=== PATIENT | female | born 1955 | race African-American/Black ===

== ENCOUNTER 2017-11-06 19:03 | Emergency (ER) | payer OTHER ==
[2017-11-06 19:27] VITALS: BMI 29.0
--- NOTE | 2017-11-06 19:27 | PDOC ---
Rapid Medical Evaluation Medical Evaluation: 11/06/17 19:21 I have performed a brief in-person evaluation of this patient. The patient presents with a chief complaint of: Abd pain w/ vag bleed x 2 weeks. Seen in [facility] last week for same w/ neg labs. 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 States bleeding continues, now w/ weakness. H/o uterine polyps s/p surgery in 2017 at [facility]. H/o HTN, non-compliant w/ meds Pertinent physical exam findings:BP 171/108, HR 111 I have ordered the following:labs The patient will proceed to the ED for further evaluation. 11/06/17 19:27 Discharge Disposition - Diagnosis Vaginal bleeding - Referrals - Patient Instructions - Post Discharge Activity
[2017-11-06 19:54] LABS: BASO % 1.2 % (0-2.0); EOS % 3.4 % (0-4.5); HEMATOCRIT 39.1 % (32.4-45.2); HEMOGLOBIN 12.9 GM/dL (10.7-15.3); LYMPH % 31.5 % (8-40); MCH 29.1 pg (25.7-33.7); MEAN CELL VOLUME 88.2 fl (80-96); MEAN PLT VOLUME 8.5 fl (7.5-11.1); MONO % 9.7 % (3.8-10.2); NEUT % 54.2 % (42.8-82.8); PLATELET COUNT 232 K/MM3 (134-434); RBC 4.44 M/mm3 (3.60-5.2); RDW 13.6 % (11.6-15.6); WHITE BLOOD COUNT 4.5 K/mm3 (4.0-10.0)
[2017-11-06 20:11] LABS: INR 1.12 (0.83-1.09); PROTHROMBIN TIME (PATIENT) 12.7 SEC (9.7-13.0)
[2017-11-06 20:18] LABS: ALBUMIN 3.6 g/dl (3.4-5.0); ALK PHOS 80 U/L (45-117); ANION GAP 11 MMOL/L (8-16); BILIRUBIN,TOTAL 0.5 mg/dL (0.2-1.0); BLOOD UREA NITROGEN 13 mg/dL (7-18); CALCIUM 8.6 mg/dL (8.5-10.1); CHLORIDE 109 mmol/L (98-107); CO2 24 mmol/L (21-32); CREATININE 0.9 mg/dL (0.55-1.3); GLUCOSE,RANDOM 105 mg/dL (74-106); POTASSIUM 3.7 mmol/L (3.5-5.1); SGOT/AST 14 U/L (15-37); SGPT/ALT 14 U/L (13-61); SODIUM 144 mmol/L (136-145); TOT PROT 6.9 g/dl (6.4-8.2)
[2017-11-06 20:24] LABS: URINE APPEARANCE SLCLOUDY; URINE BILIRUBIN NEGATIVE (<2.0 mg/dL); URINE COLOR YELLOW; URINE GLUCOSE (UA) NEGATIVE (NEGATIVE); URINE KETONE NEGATIVE (NEGATIVE); URINE LEUK ESTERASE TRACE (NEGATIVE); URINE NITRITE POSITIVE (NEGATIVE); URINE PROTEIN NEGATIVE (NEGATIVE); URINE UROBILINOGEN NEGATIVE mg/dL (0.2-1.0)
[2017-11-06 20:34] LABS: EPI CELLS FEW /HPF (FEW); URINE BACTERIA RARE /hpf (NONE SEEN); URINE MUCUS FEW
--- NOTE | 2017-11-06 22:28 | PDOC ---
Attending Attestation - HPI HPI: 11/06/17 23:34 The patient is a 61 year old female, with a significant past medical history of vaginal polyps, who presents to the emergency department with, worsening vaginal bleeding. As per patient, her vaginal bleeding has been ongoing for the past 2 months after a uterine biopsy was done in September by her CNC OPERATOR PROGRAMMER, worst over the past week. She endorses associated suprapubic cramping. She was recently evaluated at [facility] for similar symptoms and discharged without any abnormal lab results. She denies recent dysuria, frequency, urgency or hematuria. She denies recent chest pain or shortness of breath. Allergies: NKA Primary Care Physician: Dr. Joselito Long - Physicial Exam PE: 11/06/17 23:34 GENERAL: Awake, alert, and fully oriented, in no acute distress HEAD: No signs of trauma EYES: PERRLA, EOMI, sclera anicteric, conjunctiva clear ENT: Auricles normal inspection, hearing grossly normal, nares patent, oropharynx clear without exudates. Moist mucosa NECK: Normal ROM, supple, no lymphadenopathy, JVD, or masses LUNGS: Breath sounds equal, clear to auscultation bilaterally. No wheezes, and no crackles HEART: Regular rate and rhythm, normal S1 and S2, no murmurs, rubs or gallops ABDOMEN: Soft, nontender, normoactive bowel sounds. No guarding, no rebound. No masses EXTREMITIES: Normal range of motion, no edema. No clubbing or cyanosis. No cords, erythema, or tenderness PELVIC: Agree with resident exam. NEUROLOGICAL: Cranial nerves II through XII grossly intact. Normal speech, normal gait SKIN: Warm, Dry, normal turgor, no rashes or lesions noted. <Verito Aly - Last Filed: 11/06/17 23:34> - Resident Resident Name: Travis Martinez - ED Attending Attestation I have performed the following: I have examined & evaluated the patient, The case was reviewed & discussed with the resident, I agree w/resident's findings & plan - Physicial Exam PE: 11/07/17 01:59 Pt is alert and in NAD. She states that she has no HTN and she takes no meds. 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 Her HR has come down and BP has come down at discharge. - Medical Decision Making 11/07/17 01:39 Referring Physician: RONALD PADGETT Patient Name: ALEXANDREA WALKER THIS IS A PRELIMINARY REPORT FROM [facility] DATE OF SERVICE: 2017-11-07 00:12:13 IMAGES: 39 EXAM: Ultrasound TRANSVAGINAL ULTRASOUND US HISTORY: Vaginal bleeding COMPARISON: None. FINDINGS: The uterus measures 11.1 cm in length. There is some heterogeneity with some echogenic nodularity in the anterior uterine wall. This measures 3.5 x 3.2 x 3.0 cm. Endometrium is thickened and irregular measuring 0.6 cm. Left ovary measures 2.5 x 2.0 x 1.8 cm. Doppler imaging demonstrates positive vascular flow. Right ovary measures 3.1 x 1.3 x 1.6 cm. Doppler imaging demonstrates positive vascular flow IMPRESSION: Uterine wall mass suggesting a uterine fibroid. Thickened heterogeneous endometrium THIS DOCUMENT HAS BEEN ELECTRONICALLY SIGNED <Kanika Jackson - Last Filed: 11/07/17 02:00>
[2017-11-06] MEDS ORDERED: CEFTRIAXONE 1,000 MG in DEXTROSE 5%-WATER - 50 ML IVPB ONE (22:57)
[2017-11-06] MEDS ORDERED: cefTRIAXone SODIUM 1 GM VIAL ONE (23:06)
[2017-11-07 01:54] VITALS: BP 138/89; PULSE 97; TEMP 98
== END 2017-11-07 01:54 | disposition home or self-care (01) ==
LOC: JER 19:03
DX: N93.9 Abnormal uterine and vaginal bleeding, unspecified (principal)
CPT/HCPCS: 36415; 76830-TC; 80053; 81003; 81015; 85025; 85610; 86850; 86900; 86901; 96365; 99282-25

== ENCOUNTER 2019-01-29 06:11 | Inpatient (IN) | payer MEDICARE, OTHER ==
--- NOTE | 2019-01-29 06:23 | PDOC ---
Attending Attestation - Resident Resident Name: KaylaHarjinder - ED Attending Attestation I have performed the following: I have examined & evaluated the patient, The case was reviewed & discussed with the resident, I agree w/resident's findings & plan - HPI HPI: 01/29/19 06:55 Pt sent by her PMD for anemia; she has known heavy vaginal bleeding; she is scheduled for a fibroid removal in the near future. Her blood test from 10 days ago came in and she received a call from her PMD to come tot he ER for blood transfusion. She has no complaints at this time, but states that she has chest burning after doing heavy house work - Physicial Exam PE: 01/29/19 06:55 Agree with resident exam Pt appears comfortable. Heart rate NSR Lungs clear Abd soft NT ND Eyes jaundiced sclera No pitting edema neurologically intact - Medical Decision Making 01/29/19 06:56 Pt will have CBC and T+S sent; she will be signed out to the day team
--- NOTE | 2019-01-29 06:48 | PDOC ---
History of Present Illness - General Chief Complaint: Blood Transfusion Stated Complaint: PCP SENT Time Seen by Provider: 01/29/19 06:22 History Source: Patient Exam Limitations: No Limitations - History of Present Illness Initial Comments: 63 yo F with a hx of HTN and chronic vaginal bleeding for 3 years (has a scheduled hysteroscopy with polypectomy at [facility]) presents to the emergency department upon referral from her PMD for anemia found on outpatient lab work. Per the patient, she has had generalized weakness for the past couple of weeks with worsening of weakness when she exerts herself. She denies the following: fevers, chills, nausea, vomiting, hematochezia, melena, hx of colon cancer, hematemesis, and leg pain/swelling. Endorses intermittent vaginal bleeding with less than usual output. Allergies: NKDA Past History - Past Medical History Allergies/Adverse Reactions: Allergies Allergy/AdvReac Type Severity Reaction Status Date / Time No Known Allergies Allergy Verified 11/06/17 19:25 Home Medications: Ambulatory Orders NK [No Known Home Medication] 01/29/19 COPD: No HTN: Yes (Not on meds) - Reproductive History Dysfunctional Uterine Bleeding: Yes - Psycho Social/Smoking Cessation Hx Smoking History: Never smoked Have you smoked in the past 12 months: No Information on smoking cessation initiated: No Hx Alcohol Use: No Drug/Substance Use Hx: No Substance Use Type: None Review of Systems - Review of Systems Able to Perform ROS?: Yes Is the patient limited Slovak proficient: No Constitutional: Yes: Weakness. No: Chills, Diaphoresis, Fever HEENTM: No: Eye Pain, Ear Pain, Nose Pain, Throat Pain, Mouth Pain Respiratory: No: Cough, Shortness of Breath, Hemoptysis Cardiac (ROS): No: Chest Pain, Lightheadedness, Palpitations, Syncope, Chest Tightness ABD/GI: No: Constipated, Diarrhea, Nausea, Rectal Bleeding, Vomiting, Tarry Stools : No: Burning, Dysuria, Hematuria, Incontinence Musculoskeletal: No: Back Pain, Joint Pain, Neck Pain Integumentary: No: Bruising, Erythema, Rash Neurological: No: Headache, Tingling, Ataxia Psychiatric: No: Stressors, Change in Appetite Endocrine: No: Unexplained Weight Gain, Unexplained Weight Loss Hematologic/Lymphatic: Yes: Anemia *Physical Exam - Vital Signs Last Vital Signs Temp Pulse Resp BP Pulse Ox 98.0 F 102 H 20 149/90 100 01/29/19 06:29 01/29/19 06:29 01/29/19 06:29 01/29/19 06:29 01/29/19 06:29 - Physical Exam General Appearance: Yes: Nourished, Appropriately Dressed. No: Apparent Distress, Intoxicated HEENT: positive: EOMI, [place], Normal Voice, Symmetrical, Pharynx Normal, Hearing Grossly Normal. negative: Pale Conjunctivae, Scleral Icterus (R), Scleral Icterus (L), Muffled/Hoarse voice, Pharyngeal Erythema, Tonsillar Exudate, Tonsillar Erythema, Nasal Congestion, Rhinorrhea, Sinus Tenderness, Hearing Decreased, Excessive drooling Neck: positive: Trachea midline, Supple. negative: Tender, Lymphadenopathy (R) , Lymphadenopathy (L), Tender lateral, Tender midline Respiratory/Chest: positive: Lungs Clear, Normal Breath Sounds. negative: Chest Tender, Respiratory Distress, Accessory Muscle Use, Crackles, Rales, Rhonchi, Stridor, Wheezing, Hyperresonant Cardiovascular: positive: Regular Rhythm, Regular Rate, S1, S2. negative: Systolic Murmur Gastrointestinal/Abdominal: positive: Normal Bowel Sounds, Flat, Soft. negative : Tender Lymphatic: negative: Adenopathy Musculoskeletal: positive: Normal Inspection. negative: CVA Tenderness, Vertebral Tenderness Extremity: positive: Normal Capillary Refill, Normal Inspection, Normal Range of Motion. negative: Tender, Swelling, Calf Tenderness Integumentary: positive: Normal Color, Dry, Warm. 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 NML intact, Fully Oriented, Alert, Normal Mood/ Affect ED Treatment Course - LABORATORY CBC & Chemistry Diagram: 01/29/19 06:00 01/29/19 06:00 Discharge - Discharge Information Clinical Impression/Diagnosis: Anemia, Blood transfusion without reported diagnosis Condition: Improved Disposition: HOME - Follow up/Referral Referrals: Joselito Long MD [Primary Care Provider] - - Patient Discharge Instructions Patient Printed Discharge Instructions: DI for Blood Transfusion, DI for Vaginal Bleeding Additional Instructions: Follow up with your primary care doctor within 3 days regarding your Emergency Room visit. Your care is not complete until you follow up. Follow up with your OBGYN within 3 days regarding your Emergency Room visit. Your care is not complete until you follow up. Return to the Emergency Department for increasing pain, chest pain, shortness of breath, vomiting, fever, lightheadedness, passing out, soaking through >2 pads/2 consecutive hours or any other new, worsening or concerning symptoms. - Post Discharge Activity Work/Back to School Note: Back to Work
[2019-01-29 07:10] LABS: BASO % 1.4 % (0-2.0); EOS % 4.9 % (0-4.5); HEMATOCRIT 25.6 % (32.4-45.2); HEMOGLOBIN 7.9 GM/dL (10.7-15.3); LYMPH % 36.3 % (8-40); MCHC 31.1 g/dl (32.0-36.0); MEAN CELL VOLUME 70.7 fl (80-96); MEAN PLT VOLUME 7.3 fl (7.5-11.1); MONO % 9.1 % (3.8-10.2); NEUT % 48.3 % (42.8-82.8); PLATELET COUNT 410 K/MM3 (134-434); RBC 3.62 M/mm3 (3.60-5.2); RDW 16.4 % (11.6-15.6); WHITE BLOOD COUNT 3.2 K/mm3 (4.0-10.0)
--- NOTE | 2019-01-29 07:28 | PDOC ---
ED Treatment Course - LABORATORY CBC & Chemistry Diagram: 01/29/19 06:00 01/29/19 06:00 Medical Decision Making - Medical Decision Making Pt signed out to me by Dr. Garza, see prior note. 63 year old female with PMH HTN, chronic vaginal bleeding sent to ED by Dr. Long for blood transfusion for symptomatic anemia. EKG performed at 0855: rate 84, regular rhythm, normal axis, normal intervals, QTc 432, flat lateral leads. Initial Vital Signs Temp Pulse Resp BP Pulse Ox 98.0 F 102 H 20 149/90 100 01/29/19 06:29 12 06:29 01/29/19 06:29 01/29/19 06:29 01/29/19 06:29 Afebrile. Tachycardic. No tachypnea. Hypertensive. No hypoxia on room air. CBC WBC 3.2 K/mm3 (4.0-10.0) L 01/29/19 06:00 RBC 3.62 M/mm3 (3.60-5.2) 01/29/19 06:00 Hgb 7.9 GM/dL (10.7-15.3) L 01/29/19 06:00 Hct 25.6 % (32.4-45.2) L D 01/29/19 06:00 MCV 70.7 fl (80-96) L 01/29/19 06:00 MCH 22.0 pg (25.7-33.7) L D 01/29/19 06:00 MCHC 31.1 g/dl (32.0-36.0) L 01/29/19 06:00 RDW 16.4 % (11.6-15.6) H 01/29/19 06:00 Plt Count 410 K/MM3 (134-434) D 01/29/19 06:00 MPV 7.3 fl (7.5-11.1) L D 01/29/19 06:00 Absolute Neuts (auto) 1.5 K/mm3 (1.5-8.0) 01/29/19 06:00 Neutrophils % 48.3 % (42.8-82.8) 01/29/19 06:00 Lymphocytes % 36.3 % (8-40) 01/29/19 06:00 Monocytes % 9.1 % (3.8-10.2) 01/29/19 06:00 Eosinophils % 4.9 % (0-4.5) H 01/29/19 06:00 Basophils % 1.4 % (0-2.0) 01/29/19 06:00 Nucleated RBC % 0 % (0-0) 01/29/19 06:00 H/H 7.9/25.6 Prior H/H 10/27/17 12.9/39.1 -Hgb >7 but pt is symptomatic and tachycardic -Will transfuse -2Units PRBCs ordered -Pt consented for blood with verbal and written consent by me INR, PTT INR 1.07 (0.83-1.09) 01/29/19 06:00 01/29/19 07:55 CMP Sodium 140 mmol/L (136-145) 01/29/19 06:00 Potassium 4.4 mmol/L (3.5-5.1) 01/29/19 06:00 Chloride 109 mmol/L (98-107) H 01/29/19 06:00 Carbon Dioxide 24 mmol/L (21-32) 01/29/19 06:00 Anion Gap 7 MMOL/L (8-16) L 01/29/19 06:00 BUN 9.0 mg/dL (7-18) 01/29/19 06:00 Creatinine 0.9 mg/dL (0.55-1.3) 01/29/19 06:00 Est GFR (CKD-EPI)AfAm 77.77 01/29/19 06:00 Est GFR (CKD-EPI)NonAf 67.10 01/29/19 06:00 Random Glucose 92 mg/dL (74-106) 01/29/19 06:00 Calcium 8.3 mg/dL (8.5-10.1) L 01/29/19 06:00 Total Bilirubin 0.5 mg/dL (0.2-1) 01/29/19 06:00 AST 34 U/L (15-37) 01/29/19 06:00 ALT 41 U/L (13-61) 01/29/19 06:00 Alkaline Phosphatase 77 U/L (45-117) 01/29/19 06:00 Creatine Kinase 131 U/L (26-192) 01/29/19 06:00 Troponin I < 0.02 ng/ml (0.00-0.05) 01/29/19 06:00 Total Protein 6.9 g/dl (6.4-8.2) 01/29/19 06:00 Albumin 3.6 g/dl (3.4-5.0) 01/29/19 06:00 No electrolyte abnormalities. No NHUNG. No transaminitis. Troponin undetectable. 01/29/19 08:00 Blood bank called for status of PRBC preparation - reported 17 more minutes on the machine. 01/29/19 08:47 Dr. Long' office paged. They reported Dr. Boogie is weighing station operator, I specifically asked for Dr. Long as he is the one who sent in the patient. 01/29/19 08:55 Dr. Long reported he does want the patient admitted, could be satellite. Dr. Boogie paged. Discharge - Discharge Information Problems reviewed: Yes Clinical Impression/Diagnosis: Anemia, Blood transfusion without reported diagnosis Condition: Stable - Admission Yes - Follow up/Referral Referrals: Joselito Long MD [Primary Care Provider] - - Patient Discharge Instructions Patient Printed Discharge Instructions: DI for Blood Transfusion, DI for Vaginal Bleeding - Post Discharge Activity
[2019-01-29 07:35] LABS: INR 1.07 (0.83-1.09); PROTHROMBIN TIME (PATIENT) 12.6 SEC (9.7-13.0)
[2019-01-29 07:38] LABS: ACTIVATED PTT 29.7 SECONDS (25.2-36.5)
[2019-01-29 07:53] LABS: ALBUMIN 3.6 g/dl (3.4-5.0); ALK PHOS 77 U/L (45-117); ANION GAP 7 MMOL/L (8-16); BILIRUBIN,TOTAL 0.5 mg/dL (0.2-1); CALCIUM 8.3 mg/dL (8.5-10.1); CHLORIDE 109 mmol/L (98-107); CO2 24 mmol/L (21-32); CREATININE 0.9 mg/dL (0.55-1.3); GLUCOSE,RANDOM 92 mg/dL (74-106); POTASSIUM 4.4 mmol/L (3.5-5.1); SGOT/AST 34 U/L (15-37); SGPT/ALT 41 U/L (13-61); SODIUM 140 mmol/L (136-145); TOT PROT 6.9 g/dl (6.4-8.2)
[2019-01-29] MEDS ORDERED: morphine CARPU-JECT 4 MG/1 ML DISP.SYRIN IVPUSH ONE (10:11)
[2019-01-29 14:52] VITALS: BMI 27.9
[2019-01-29] MEDS ORDERED: ACETAMINOPHEN 325 MG TABLET (FP) PO PRN (19:54)
--- NOTE | 2019-01-29 19:54 | HP ---
Admitting History and Physical - Past Medical History ...: No - Smoking History Smoking history: Never smoked Have you smoked in the past 12 months: No - Alcohol/Substance Use Hx Alcohol Use: No Home Medications - Allergies Allergies/Adverse Reactions: Allergies Allergy/AdvReac Type Severity Reaction Status Date / Time No Known Allergies Allergy Verified 11/06/17 19:25 - Home Medications Home Medications: Ambulatory Orders NK [No Known Home Medication] 01/29/19 Physical Examination Vital Signs: Vital Signs Temperature 98.4 F 01/29/19 14:40 Pulse Rate 98 H 01/29/19 14:40 Respiratory Rate 20 01/29/19 14:40 Blood Pressure 140/92 01/29/19 14:40 O2 Sat by Pulse Oximetry (%) 100 01/29/19 12:47 Labs: CBC, BMP 01/29/19 06:00 01/29/19 06:00
--- NOTE | 2019-01-29 23:11 | EKG ---
Test Reason : Blood Pressure : / mmHG Vent. Rate : 084 BPM Atrial Rate : 084 BPM P-R Int : 132 ms QRS Dur : 078 ms QT Int : 366 ms P-R-T Axes : 060 053 -05 degrees QTc Int : 432 ms NORMAL SINUS RHYTHM NONSPECIFIC T WAVE ABNORMALITY ABNORMAL ECG NO PREVIOUS ECGS AVAILABLE Confirmed by RORY JAVIER, CRISTIAN ([id number]) on 01/29/2019 11:11:46 PM Referred By: Confirmed By:CRISTIAN VALADEZ MD
[2019-01-30 06:31] VITALS: TEMP 98.2
[2019-01-30 08:03] LABS: BASO % 0.9 % (0-2.0); EOS % 4.8 % (0-4.5); HEMATOCRIT 30.4 % (32.4-45.2); HEMOGLOBIN 9.8 GM/dL (10.7-15.3); LYMPH % 24.4 % (8-40); MCH 23.8 pg (25.7-33.7); MCHC 32.2 g/dl (32.0-36.0); MEAN CELL VOLUME 73.8 fl (80-96); MEAN PLT VOLUME 7.6 fl (7.5-11.1); MONO % 11.8 % (3.8-10.2); NEUT % 58.1 % (42.8-82.8); PLATELET COUNT 362 K/MM3 (134-434); RBC 4.11 M/mm3 (3.60-5.2); RDW 18.2 % (11.6-15.6)
[2019-01-30 08:19] LABS: BILIRUBIN,TOTAL 0.6 mg/dL (0.2-1); BLOOD UREA NITROGEN 14.1 mg/dL (7-18); CALCIUM 8.2 mg/dL (8.5-10.1); CREATININE 0.9 mg/dL (0.55-1.3); POTASSIUM 4.2 mmol/L (3.5-5.1); TOT PROT 5.9 g/dl (6.4-8.2)
[2019-01-30 15:19] VITALS: BP 132/85; PULSE 78
== END 2019-01-30 16:30 | disposition home or self-care (01) | DRG 812 ==
LOC: JER 06:11 → JERBED 08:56 → J8W 14:14
PROVIDERS: ADMIT Internal Medicine; ATTEND Internal Medicine
PROC: 30233N1 Transfusion of Nonautologous Red Blood Cells into Peripheral Vein, Percutaneous Approach (ICD-10-PCS; principal; 2019-01-29)
DX: D64.9 Anemia, unspecified (principal); R17 Unspecified jaundice; N93.8 Other specified abnormal uterine and vaginal bleeding; I10 Essential (primary) hypertension; R00.0 Tachycardia, unspecified
CPT/HCPCS: 36415; 36430; 36511; 71046-TC-FY; 80053; 82550; 84484; 85025; 85610; 85730; 86850; 86900; 86901; 86922; 93005; 93010; 99285-25; P9038; P9058

== ENCOUNTER 2019-02-24 23:05 | Inpatient (IN) | payer MEDICARE ==
[2019-02-24 23:12] VITALS: BMI 27.4
--- NOTE | 2019-02-24 23:57 | PDOC ---
History of Present Illness - General Chief Complaint: Vaginal Bleeding Stated Complaint: VAGINAL BLEEDING Time Seen by Provider: 02/24/19 23:56 History Source: Patient - History of Present Illness Initial Comments: 02/25/19 01:46 Ms. Kern is a 63 y/o woman w/hx endometriosis, fibroid uterus with resultant chronic uterine bleeding p/w worsening of vaginal bleeding today alongside lightheadedness, shortness of breath. She describes the bleeding as a "gush", soaking through pads approx every 20 minutes. She reports changing 8-10 pads today that were soaked through as well as passing clots. She reports that she has been scheduled for a d&c initially on 01/28, but was found to be anemic to 7.8 during ED evaluation for weakness. At that time she was admitted and received a blood transfusion. She reports that today she feels less weak than she was at that time. Residence Hall Director: Dr. Renee Delacruz PCP: Dr. Long Past History - Past Medical History Allergies/Adverse Reactions: Allergies Allergy/AdvReac Type Severity Reaction Status Date / Time No Known Allergies Allergy Verified 02/25/19 07:11 Home Medications: Ambulatory Orders NK [No Known Home Medication] 02/25/19 COPD: No HTN: Yes Other medical history: fibroids and endo - Psycho Social/Smoking Cessation Hx Smoking History: Never smoked Review of Systems - Review of Systems Able to Perform ROS?: Yes Comments:: 02/25/19 01:51 ROS: GENERAL/CONSTITUTIONAL: Weakness. No fever or chills. HEAD, EYES, EARS, NOSE AND THROAT: No change in vision. No ear pain or discharge. No sore throat. CARDIOVASCULAR: Chest pain, shortness of breath RESPIRATORY: No cough, wheezing, or hemoptysis. GASTROINTESTINAL: No nausea, vomiting, diarrhea or constipation. GENITOURINARY: No dysuria, frequency, or change in urination. MUSCULOSKELETAL: No joint or muscle swelling or pain. No neck or back pain. SKIN: No rash NEUROLOGIC: No headache, vertigo, loss of consciousness, or change in strength/ sensation. ENDOCRINE: No increased thirst. No abnormal weight change HEMATOLOGIC/LYMPHATIC: Prior blood loss anemia. No easy bleeding, or history of blood clots. ALLERGIC/IMMUNOLOGIC: No hives or skin allergy. *Physical Exam - Vital Signs Last Vital Signs Temp Pulse Resp BP Pulse Ox 98.2 F 111 H 19 155/81 100 02/24/19 23:08 02/24/19 23:08 02/24/19 23:08 02/24/19 23:08 02/24/19 23:08 - Physical Exam 02/25/19 01:52 PE: GENERAL: Awake, alert, and fully oriented, in no acute distress HEAD: No signs of trauma, normocephalic, atraumatic EYES: PERRLA, EOMI, sclera anicteric, conjunctiva clear ENT: Auricles normal inspection, hearing grossly normal, nares patent, oropharynx clear without exudates. Moist mucosa NECK: Normal ROM, supple, no lymphadenopathy, JVD, or masses LUNGS: No distress, speaks full sentences, clear to auscultation bilaterally HEART: Regular rate and rhythm, normal S1 and S2, no murmurs, rubs or gallops, peripheral pulses normal and equal bilaterally. ABDOMEN: Soft, nontender, normoactive bowel sounds. No guarding, no rebound. No masses EXTREMITIES : Normal inspection, Normal range of motion, no edema. No clubbing or cyanosis NEUROLOGICAL: Cranial nerves II through XII grossly intact. Normal speech, normal gait, no focal sensorimotor deficits SKIN: Warm, Dry, normal turgor, no rashes or lesions noted Pelvic exam: Dried blood externally, trickle of blood. Active uterine bleeding, pooled blood in vaginal vault. No lesions, rashes, ulcerations noted. ED Treatment Course - LABORATORY CBC & Chemistry Diagram: 02/26/19 06:27 02/26/19 06:27 Medical Decision Making - Medical Decision Making 02/25/19 01:53 63F w/hx endometriosis, fibroids, prior transfusion from blood loss anemia p/w worsening vaginal bleeding c/w ongoing fibroid uterus and endometriosis. Plan: CBC CMP PT/INR PTT Type and Screen x2 EKG CXR --- Hg - 9.6 EKG - NSR CXR - no acute process Plan for repeat H&H @0500. If Hg stable, discharge home then follow up w/recruiting coordinator. If Hg dropping likely admit. --- Patient signed out to Dr. Jackman during shift change. Discharge - Discharge Information Problems reviewed: Yes Clinical Impression/Diagnosis: Vaginal bleeding Condition: Stable - Admission No - Follow up/Referral - Patient Discharge Instructions - Post Discharge Activity
--- NOTE | 2019-02-25 00:50 | PDOC ---
Documentation entered by Elizabeth Tan SCRIBE, acting as scribe for Lelo Rai DO. Lelo Rai, DO: This documentation has been prepared by the Brintey soto Joy, SCRIBE, under my direction and personally reviewed by me in its entirety. I confirm that the documentation accurately reflects all work, treatment, procedures, and medical decision making performed by me. Attending Attestation - Resident Resident Name: Nader Easton - ED Attending Attestation I have performed the following: I have examined & evaluated the patient, The case was reviewed & discussed with the resident, I agree w/resident's findings & plan, Exceptions are as noted - HPI HPI: 02/25/19 01:09 The patient is a 63 year old female with significant past medical history of fibroids and endometriosis who presents to the ED with vaginal bleeding, lightheadedness, and palpitations that started earlier today. Patient reports that she is supposed to have a hysterectomy with Dr. Parnell at [facility] which has been held off many times because she needed transfusions. Allergies: NKA PCP: Dr. Joselito Long - Physicial Exam PE: 02/25/19 01:03 Gen: aaox3, nad heart: +s1s2 tachy lungs: cta b/l abd: soft, nt/nd +bs, pelvic per the resident ext: no c/c/e - Medical Decision Making 02/25/19 01:03 a/p: 63yo female with vaginal bleeding -has appt for today with DIRECTOR LONG TERM CARE -heavier bleeding today -felt palpitations/lightheaded -has bled through 8-10 pads today -will send labs, h/h, type and screen -will monitor and reassess 02/25/19 01:28 hgb 9.6 cxr clear 02/25/19 02:05 will repeat h/h at 5am 02/25/19 02:06 pt signed out to the oncoming ED physician pending repeat labs Heart Score/ECG Review - ECG Intrepretation Comment:: 02/25/19 00:49 sinus tach at 102, nl axis, nl interval, t wave inversions III, no acute st changes
[2019-02-25 01:16] LABS: BASO % 0.8 % (0-2.0); EOS % 2.3 % (0-4.5); HEMATOCRIT 30.9 % (32.4-45.2); HEMOGLOBIN 9.6 GM/dL (10.7-15.3); LYMPH % 16.8 % (8-40); MCH 22.9 pg (25.7-33.7); MCHC 30.9 g/dl (32.0-36.0); MEAN CELL VOLUME 74.1 fl (80-96); MEAN PLT VOLUME 8.2 fl (7.5-11.1); MONO % 7.8 % (3.8-10.2); NEUT % 72.3 % (42.8-82.8); PLATELET COUNT 347 K/MM3 (134-434); RBC 4.18 M/mm3 (3.60-5.2); RDW 21.9 % (11.6-15.6); WHITE BLOOD COUNT 8.1 K/mm3 (4.0-10.0)
[2019-02-25 01:26] LABS: INR 1.04 (0.83-1.09); PROTHROMBIN TIME (PATIENT) 12.3 SEC (9.7-13.0)
[2019-02-25 01:28] LABS: ACTIVATED PTT 29.3 SECONDS (25.2-36.5)
[2019-02-25 01:36] LABS: ALBUMIN 3.7 g/dl (3.4-5.0); BILIRUBIN,TOTAL 0.4 mg/dL (0.2-1); BLOOD UREA NITROGEN 8.2 mg/dL (7-18); CALCIUM 8.6 mg/dL (8.5-10.1); CREATININE 0.8 mg/dL (0.55-1.3); POTASSIUM 4.2 mmol/L (3.5-5.1); TOT PROT 6.8 g/dl (6.4-8.2)
--- NOTE | 2019-02-25 02:03 | PDOC ---
*Physical Exam - Vital Signs Last Vital Signs Temp Pulse Resp BP Pulse Ox 98.2 F 111 H 19 155/81 100 02/24/19 23:08 02/24/19 23:08 02/24/19 23:08 02/24/19 23:08 02/24/19 23:08 ED Treatment Course - LABORATORY CBC & Chemistry Diagram: 02/25/19 05:20 02/25/19 00:52 - ADDITIONAL ORDERS Additional order review: Laboratory Results 02/25/19 02/25/19 02/25/19 00:52 00:52 00:52 PT with INR 12.30 INR 1.04 PTT (Actin FS) 29.3 Sodium 139 Potassium 4.2 Chloride 109 H Carbon Dioxide 24 Anion Gap 7 L BUN 8.2 Creatinine 0.8 Est GFR (CKD-EPI)AfAm 89.67 Est GFR (CKD-EPI)NonAf 77.37 Random Glucose 100 Calcium 8.6 Total Bilirubin 0.4 AST 19 ALT 25 Alkaline Phosphatase 79 Creatine Kinase 121 Troponin I < 0.02 Total Protein 6.8 Albumin 3.7 02/25/19 00:52 RBC 4.18 MCV 74.1 L MCHC 30.9 L RDW 21.9 H MPV 8.2 Neutrophils % 72.3 Lymphocytes % 16.8 Monocytes % 7.8 Eosinophils % 2.3 Basophils % 0.8 Medical Decision Making - Medical Decision Making 02/25/19 03:10 Received sign out from Dr Easton. Pt seen and assessed at bedside. 63yo F hx endometriosis, fibroid uterus with resultant chronic uterine bleeding with worsening of vaginal bleeding today soaking through 1 pad/20min (8-10pads today with clots), with lightheadedness, shortness of breath. She describes the bleeding as a "gush", soaking through pads approx every 20 minutes. Plan for hysterectomy at [facility] but multiple rescheduling due to anemia, last 01/28 admission at [facility] for blood transfusion. Past Due Accounts Clerk: Dr. Renee Delacruz PCP: Dr. Long Pending repeat H/H at 0500. H/H at 0100: 9.6/30.9. If no significant change H/H , can d/c home with head of geography f/u. CBC,CMP WBC 8.1 K/mm3 (4.0-10.0) 02/25/19 00:52 RBC 4.18 M/mm3 (3.60-5.2) 02/25/19 00:52 Hgb 9.6 GM/dL (10.7-15.3) L 02/25/19 00:52 Hct 30.9 % (32.4-45.2) L 02/25/19 00:52 MCV 74.1 fl (80-96) L 02/25/19 00:52 MCH 22.9 pg (25.7-33.7) L 02/25/19 00:52 MCHC 30.9 g/dl (32.0-36.0) L 02/25/19 00:52 RDW 21.9 % (11.6-15.6) H 02/25/19 00:52 Plt Count 347 K/MM3 (134-434) 02/25/19 00:52 MPV 8.2 fl (7.5-11.1) 02/25/19 00:52 Absolute Neuts (auto) 5.8 K/mm3 (1.5-8.0) 02/25/19 00:52 Neutrophils % 72.3 % (42.8-82.8) 02/25/19 00:52 Lymphocytes % 16.8 % (8-40) 02/25/19 00:52 Monocytes % 7.8 % (3.8-10.2) 02/25/19 00:52 Eosinophils % 2.3 % (0-4.5) 02/25/19 00:52 Basophils % 0.8 % (0-2.0) 02/25/19 00:52 Nucleated RBC % 0 % (0-0) 02/25/19 00:52 Sodium 139 mmol/L (136-145) 02/25/19 00:52 Potassium 4.2 mmol/L (3.5-5.1) 02/25/19 00:52 Chloride 109 mmol/L (98-107) H 02/25/19 00:52 Carbon Dioxide 24 mmol/L (21-32) 02/25/19 00:52 Anion Gap 7 MMOL/L (8-16) L 02/25/19 00:52 BUN 8.2 mg/dL (7-18) 02/25/19 00:52 Creatinine 0.8 mg/dL (0.55-1.3) 02/25/19 00:52 Est GFR (CKD-EPI)AfAm 89.67 02/25/19 00:52 Est GFR (CKD-EPI)NonAf 77.37 02/25/19 00:52 Random Glucose 100 mg/dL (74-106) 02/25/19 00:52 Calcium 8.6 mg/dL (8.5-10.1) 02/25/19 00:52 Total Bilirubin 0.4 mg/dL (0.2-1) 02/25/19 00:52 AST 19 U/L (15-37) 02/25/19 00:52 ALT 25 U/L (13-61) 02/25/19 00:52 Alkaline Phosphatase 79 U/L (45-117) 02/25/19 00:52 Creatine Kinase 121 U/L (26-192) 02/25/19 00:52 Troponin I < 0.02 ng/ml (0.00-0.05) 02/25/19 00:52 Total Protein 6.8 g/dl (6.4-8.2) 02/25/19 00:52 Albumin 3.7 g/dl (3.4-5.0) 02/25/19 00:52 02/25/19 03:14 Pt sleeping comfortably. 02/25/19 05:05 Pt sleeping comfortably. 02/25/19 06:56 Hb dropped to 8.4. Pt still lightheaded, abdominal cramping, active bleeding, went through 4 pads since arrival. Will transfuse and admit. CBC,CMP WBC 7.7 K/mm3 (4.0-10.0) 02/25/19 05:20 RBC 3.71 M/mm3 (3.60-5.2) 02/25/19 05:20 Hgb 8.4 GM/dL (10.7-15.3) L 02/25/19 05:20 Hct 27.2 % (32.4-45.2) L 02/25/19 05:20 MCV 73.1 fl (80-96) L 02/25/19 05:20 MCH 22.6 pg (25.7-33.7) L 02/25/19 05:20 MCHC 31.0 g/dl (32.0-36.0) L 02/25/19 05:20 RDW 21.9 % (11.6-15.6) H 02/25/19 05:20 Plt Count 307 K/MM3 (134-434) 02/25/19 05:20 MPV 7.6 fl (7.5-11.1) 02/25/19 05:20 Absolute Neuts (auto) 5.2 K/mm3 (1.5-8.0) 02/25/19 05:20 Neutrophils % 66.6 % (42.8-82.8) 02/25/19 05:20 Lymphocytes % 22.3 % (8-40) D 02/25/19 05:20 Monocytes % 7.6 % (3.8-10.2) 02/25/19 05:20 Eosinophils % 2.3 % (0-4.5) 02/25/19 05:20 Basophils % 1.2 % (0-2.0) 02/25/19 05:20 Nucleated RBC % 0 % (0-0) 02/25/19 05:20 Sodium 139 mmol/L (136-145) 02/25/19 00:52 Potassium 4.2 mmol/L (3.5-5.1) 02/25/19 00:52 Chloride 109 mmol/L (98-107) H 02/25/19 00:52 Carbon Dioxide 24 mmol/L (21-32) 02/25/19 00:52 Anion Gap 7 MMOL/L (8-16) L 02/25/19 00:52 BUN 8.2 mg/dL (7-18) 02/25/19 00:52 Creatinine 0.8 mg/dL (0.55-1.3) 02/25/19 00:52 Est GFR (CKD-EPI)AfAm 89.67 02/25/19 00:52 Est GFR (CKD-EPI)NonAf 77.37 02/25/19 00:52 Random Glucose 100 mg/dL (74-106) 02/25/19 00:52 Calcium 8.6 mg/dL (8.5-10.1) 02/25/19 00:52 Total Bilirubin 0.4 mg/dL (0.2-1) 02/25/19 00:52 AST 19 U/L (15-37) 02/25/19 00:52 ALT 25 U/L (13-61) 02/25/19 00:52 Alkaline Phosphatase 79 U/L (45-117) 02/25/19 00:52 Creatine Kinase 121 U/L (26-192) 02/25/19 00:52 Troponin I < 0.02 ng/ml (0.00-0.05) 02/25/19 00:52 Total Protein 6.8 g/dl (6.4-8.2) 02/25/19 00:52 Albumin 3.7 g/dl (3.4-5.0) 02/25/19 00:[address] Boogie's office for admission. Blood transfusion consent obtain. 1 unit pRBC ordered. 02/25/19 07:30 Pt signed out to admitting team pending Dr Boogie call-back. Ask Dr Boogie if she would like Past Due Accounts Clerk consult. Discharge - Discharge Information Problems reviewed: Yes Clinical Impression/Diagnosis: Vaginal bleeding Condition: Stable - Admission Yes - Follow up/Referral - Patient Discharge Instructions - Post Discharge Activity
[2019-02-25 05:40] LABS: BASO % 1.2 % (0-2.0); EOS % 2.3 % (0-4.5); HEMATOCRIT 27.2 % (32.4-45.2); HEMOGLOBIN 8.4 GM/dL (10.7-15.3); LYMPH % 22.3 % (8-40); MCH 22.6 pg (25.7-33.7); MEAN CELL VOLUME 73.1 fl (80-96); MEAN PLT VOLUME 7.6 fl (7.5-11.1); MONO % 7.6 % (3.8-10.2); NEUT % 66.6 % (42.8-82.8); PLATELET COUNT 307 K/MM3 (134-434); RBC 3.71 M/mm3 (3.60-5.2); RDW 21.9 % (11.6-15.6); WHITE BLOOD COUNT 7.7 K/mm3 (4.0-10.0)
[2019-02-25] MEDS ORDERED: IRON SUCROSE INJECTION 100 MG in SODIUM CHLORIDE 95 ML IVPB ONE (09:40)
--- NOTE | 2019-02-25 10:50 | HP ---
Admitting History and Physical - Admission History of Present Illness: The patient is a 63 year old female with PMH significant for uterine fibroids, endometriosis and anemia. Pt presented to the ED with vaginal bleeding, lightheadedness, and palpitations that started earlier in the day. Patient reports that she is supposed to have a hysterectomy with Dr. Parnell at [facility] which has been held off many times because she needed transfusions. Pt states that her menstrual flow is heavy w/ small clots. - Past Medical History Heme/Onc: Yes: Anemia - Smoking History Smoking history: Never smoked Home Medications - Allergies Allergies/Adverse Reactions: Allergies Allergy/AdvReac Type Severity Reaction Status Date / Time No Known Allergies Allergy Verified 02/25/19 07:11 - Home Medications Home Medications: Ambulatory Orders Ferrous Sulfate [Feosol] 325 mg PO DAILY #30 tablet 02/26/19 Medroxyprogesterone Acetate [Provera] 10 mg PO DAILY #20 tablet 02/26/19 Family Medical History Family History: Unremarkable Review of Systems - Review of Systems Constitutional: reports: Lethargy, Weakness Eyes: reports: No Symptoms HENT: reports: No Symptoms Neck: reports: No Symptoms Cardiovascular: reports: Palpitations Physical Examination Vital Signs: Vital Signs Temperature 98.9 F 02/25/19 08:02 Pulse Rate 103 H 02/25/19 08:02 Respiratory Rate 18 02/25/19 08:02 Blood Pressure 119/79 02/25/19 08:02 O2 Sat by Pulse Oximetry (%) 100 02/25/19 08:02 Eyes: Yes: WNL HENT: Yes: WNL Neck: Yes: WNL, Supple Cardiovascular: Yes: WNL, Regular Rate and Rhythm Respiratory: Yes: WNL, Regular, CTA Bilaterally Gastrointestinal: Yes: WNL, Normal Bowel Sounds Extremities: Yes: WNL Edema: No Neurological: Yes: WNL, Alert, Oriented ...Motor Strength: WNL Labs: CBC, BMP 02/25/19 05:20 02/25/19 00:52 Problem List - Problems (1) Symptomatic anemia Assessment/Plan: Transfuse prbc's Monitor H/H Vaginal bleeding SITE SAFETY MANAGER consult Code(s): D64.9 - ANEMIA, UNSPECIFIED (2) Vaginal bleeding Assessment/Plan: SITE SAFETY MANAGER consult Code(s): N93.9 - ABNORMAL UTERINE AND VAGINAL BLEEDING, UNSPECIFIED
--- NOTE | 2019-02-25 12:52 | CONSULT ---
Consult Consult Specialty:: ELEMENTARY SCHOOL TEACHER Reason for Consultation:: Vaginal Bleeding - History of Present Illness Chief Complaint: Postmenopausal bleeding History of Present Illness: 63yo with longstanding history of vaginal bleeding going back x 3 years. Reports history of fibroids since her 20's but "very small" then, last sono in system here in 2018 showed small fibroid uterus. Reports over last 3 months increased bleeding but not daily. Saw PCP Dr. Joselito Long last week when she was having spotting, given Provera 5 or 10mg and told to take it for only 5 days, which she did. 2 days after stopping, she reports heavy bleeding started- which was yesterday around 1PM. She presented to the ER last night as it persisted in heaviness. Unable to quantify how many pads she has changed. Passing small clots. Some cramping. Primary ELEMENTARY SCHOOL TEACHER: Renee Delacruz (ELEMENTARY SCHOOL TEACHER at [employer]), was supposed to have a D&C in early January, but cancelled 2/2 anemia preoperatively... Was scheduled to go today for her preop evaluation prior to another scheduled D&C and possible Mirena placement. States her last sono was one year ago and she believes she has had an office biopsy, but unsure when and what the results showed. Again, unclear given 3 year history of this bleeding what entirely has been done and the overall plan with her Primary ELEMENTARY SCHOOL TEACHER. - History Source History Provided By: Patient - Past Medical History WEIGHER BULKER: No: Alzheimer's, CVA, Dementia, Migraine, Multiple Sclerosis, Peripheral Neuropathy, Parkinson's, Seizure, Syncope, TIA, Vertigo, Other Cardio/Vascular: Yes: HTN Gastrointestinal: No: Ascites, Cancer, Constipation, Crohn's Disease, Diverticulitis, Diverticulosis, Esophageal Varices, Gastritis, GERD, GI Bleed, Hemorrhoids, Hiatal Hernia, Inflamatory Bowel Disease, Irritable Bowel Disease, Pancreatitis, Peptic Ulcer Disease, Ulcerative Colitis, Other Hepatobiliary: No: Cirrhosis, Cholelithiasis, Cholecystitis, Choledocholithiasis , Hepatitis A, Hepatitis B, Hepatitis C, Other Renal/: No: Renal Failure, Renal Inusuff, BPH, Cancer, Hematuria, Hemodialysis , Neurogenic Bladder, Renal Calculi, UTI, Other ...: No ...: 4 ...Para: 4 Heme/Onc: Yes: Anemia - Past Surgical History Past Surgical History: Yes: None - Smoking History Smoking history: Never smoked - Social History Usual Living Arrangement: Alone ADL: Independent History of Recent Travel: No Home Medications - Allergies Allergies/Adverse Reactions: Allergies Allergy/AdvReac Type Severity Reaction Status Date / Time No Known Allergies Allergy Verified 02/25/19 07:11 - Home Medications Home Medications: Ambulatory Orders Ferrous Sulfate [Feosol] 325 mg PO DAILY #30 tablet 02/26/19 Medroxyprogesterone Acetate [Provera] 10 mg PO DAILY #20 tablet 02/26/19 Review of Systems - Review of Systems Constitutional: denies: No Symptoms, Chills, Diaphoresis, Fever, Lethargy, Loss of Appetite, Malaise, Night Sweats, Unintentional Wgt. Loss, Weakness, Other Genitourinary: reports: Vaginal Bleeding Physical Exam Vital Signs: Vital Signs Temperature 99 F 02/25/19 12:00 Pulse Rate 92 H 02/25/19 12:00 Respiratory Rate 18 02/25/19 12:00 Blood Pressure 117/70 02/25/19 12:00 O2 Sat by Pulse Oximetry (%) 100 02/25/19 12:00 Constitutional: Yes: Well Nourished, No Distress, Calm Renal/: Yes: Vaginal Bleeding, Other (Dark brown blood in the vaginal vault, no active or brisk bleeding, uterus small, mobile, no discrete fibroids appreciated) Labs: CBC, BMP 02/25/19 05:20 02/25/19 00:52 Imaging - Results Ultrasound: Report Reviewed Problem List - Problems (1) Anemia Code(s): D64.9 - ANEMIA, UNSPECIFIED Qualifiers: Anemia type: iron deficiency Iron deficiency anemia type: chronic blood loss Qualified Code(s): D50.0 - Iron deficiency anemia secondary to blood loss (chronic) (2) Vaginal bleeding Code(s): N93.9 - ABNORMAL UTERINE AND VAGINAL BLEEDING, UNSPECIFIED Assessment/Plan 63yo with vaginal bleeding, provoked by progesterone withdrawal. H/H reviewed (Hgb 9 -> 8, Hct of 30 -> 27 over 5 hours...) and compared with Anemia from previous admission (H/H: 09/16). Patient not symptomatic from anemia. Being transfused as per primary team 1U PRBC only No Endometrial pathology on file given outside provider is her primary ELEMENTARY SCHOOL TEACHER, thickened ES in 2018 of 2.7cm. Should have had endometrial sampling, presumably negative given longstanding history of her bleeding and no surgical management. Not a candidate for IV estrogen therapy at this time. Previous sonogram from 2018 reviewed and agree uterus is small, no large masses appreciated. At time of evaluation, still uner 24 hours of bleeding, will cont to monitor. If persists greater than 24 hours, consider progesterone therapy daily until outpatient follow up can be established Patient will ultimately need definitive therapy with hysterectomy given age and persistence of bleeding, which will need to be discussed on an outpatient basis. Krish Boyd MD
--- NOTE | 2019-02-25 13:21 | EKG ---
Test Reason : Blood Pressure : / mmHG Vent. Rate : 102 BPM Atrial Rate : 102 BPM P-R Int : 116 ms QRS Dur : 066 ms QT Int : 328 ms P-R-T Axes : 052 017 -17 degrees QTc Int : 427 ms POOR DATA QUALITY, INTERPRETATION MAY BE ADVERSELY AFFECTED SINUS TACHYCARDIA NONSPECIFIC T WAVE ABNORMALITY ABNORMAL ECG NO PREVIOUS ECGS AVAILABLE Confirmed by RAYMUNDO SAAVEDRA MD ([id number]) on 02/25/2019 1:21:08 PM Referred By: Confirmed By:RAYMUNDO SAAVEDRA MD
[2019-02-25 14:12] LABS: ANISOCYTOSIS 1+; MACROCYTOSIS 0; OVALOCYTE 1+; PLATELET ESTIMATE NORMAL
[2019-02-25] MEDS ORDERED: ACETAMINOPHEN 325 MG TABLET (FP) PO ONE (20:15)
[2019-02-26 06:44] LABS: BASO % 0.7 % (0-2.0); EOS % 0.8 % (0-4.5); HEMATOCRIT 25.5 % (32.4-45.2); LYMPH % 16.4 % (8-40); MCH 23.3 pg (25.7-33.7); MCHC 31.3 g/dl (32.0-36.0); MEAN CELL VOLUME 74.6 fl (80-96); MONO % 5.6 % (3.8-10.2); NEUT % 76.5 % (42.8-82.8); PLATELET COUNT 268 K/MM3 (134-434); RBC 3.42 M/mm3 (3.60-5.2); RDW 21.2 % (11.6-15.6); WHITE BLOOD COUNT 8.5 K/mm3 (4.0-10.0)
[2019-02-26 07:15] LABS: ALBUMIN 2.8 g/dl (3.4-5.0); BILIRUBIN,TOTAL 0.6 mg/dL (0.2-1); BLOOD UREA NITROGEN 10.8 mg/dL (7-18); CALCIUM 7.8 mg/dL (8.5-10.1); CREATININE 0.8 mg/dL (0.55-1.3); POTASSIUM 4.1 mmol/L (3.5-5.1); TOT PROT 5.2 g/dl (6.4-8.2)
[2019-02-26] MEDS: ACETAMINOPHEN 325 MG TABLET (FP) PO PRN (09:08)
--- NOTE | 2019-02-26 10:25 | PN ---
Progress Note, Physician Chief Complaint: No events overnight. Still bleeding, reports using 4 pads over last 24 hours. Small clots. Has not changed pad yet today. History of Present Illness: 63yo with longstanding history of vaginal bleeding going back x 3 years. Reports history of fibroids since her 20's but "very small" then, last sono in system here in 2018 showed small fibroid uterus. Reports over last 3 months increased bleeding but not daily. Saw PCP Dr. Long last week when she was having spotting, given Provera ?10mg and told to take it for 5 days, which she did. 2 days after stopping, she reports heavy bleeding started- which was yesterday around 1PM. She presented to the ER last night as it persisted. Primary UNDERWRITER: Renee Delacruz (UNDERWRITER at [facility]), was supposed to have a D&C in early January, but cancelled 2/2 anemia preoperative. Was scheduled to go today for her preop evaluation prior to another scheduled D&C and possible Mirena placement. States her last sono was one year ago and she believes she has had an office biopsy, but unsure when and what the results showed. - Current Medication List Current Medications: Active Medications Acetaminophen (Tylenol -) 650 mg PO Q6H PRN PRN Reason: pain 4-10 Last Admin: 02/26/19 09:08 Dose: 650 mg - Objective Vital Signs: Vital Signs Temperature 98.4 F 02/26/19 05:30 Pulse Rate 101 H 02/26/19 05:30 Respiratory Rate 18 02/26/19 05:30 Blood Pressure 113/64 02/26/19 05:30 O2 Sat by Pulse Oximetry (%) 96 02/25/19 21:00 Genitourinary: Yes: Vaginal Bleeding Labs: CBC, BMP 02/26/19 06:27 02/26/19 06:27 INR, PTT INR 1.04 (0.83-1.09) 02/25/19 00:52 Problem List - Problems (1) Anemia Code(s): D64.9 - ANEMIA, UNSPECIFIED Qualifiers: Anemia type: iron deficiency Iron deficiency anemia type: chronic blood loss Qualified Code(s): D50.0 - Iron deficiency anemia secondary to blood loss (chronic) (2) Vaginal bleeding Code(s): N93.9 - ABNORMAL UTERINE AND VAGINAL BLEEDING, UNSPECIFIED Assessment/Plan 63yo with vaginal bleeding, provoked by progesterone withdrawal. H/H reviewed (Hgb 9 -> 8, Hct of 30 -> 27 over 5 hours... today 10/17 after 1U PRBC. Would benefit from additional 1-2 units PRBC. Needs TVUS, ordered, but can follow up to discuss results in office. Should call Thursday to schedule appointment- which will be on 02/23/2019 at earliest with this MD. No previous pathology regarding cause for bleeding, not candidate for IV estrogen therapy without this. Can restart progesterone to be taken daily to decrease and stop bleeding. Recommended she start this and continue daily until plan for treatment made. Patient will ultimately need definitive therapy with hysterectomy given age and persistence of bleeding, which will need to be discussed on an outpatient basis. Krish Boyd MD
--- NOTE | 2019-02-26 22:26 | PN ---
Progress Note, Physician History of Present Illness: Pt states she still is having increased vaginal bleeding - Current Medication List Current Medications: Active Medications Acetaminophen (Tylenol -) 650 mg PO Q6H PRN PRN Reason: pain 4-10 Last Admin: 02/26/19 09:08 Dose: 650 mg Medroxyprogesterone Acetate (Provera -) 10 mg PO DAILY SERGEI Last Admin: 02/26/19 12:09 Dose: 10 mg - Objective Vital Signs: Vital Signs Temperature 98.4 F 02/26/19 20:45 Pulse Rate 106 H 02/26/19 20:45 Respiratory Rate 18 02/26/19 20:45 Blood Pressure 116/67 02/26/19 20:45 O2 Sat by Pulse Oximetry (%) 98 02/26/19 09:00 Neck: Yes: WNL, Supple Cardiovascular: Yes: WNL, Regular Rate and Rhythm Respiratory: Yes: WNL, Regular, CTA Bilaterally Gastrointestinal: Yes: WNL, Normal Bowel Sounds, Soft Labs: CBC, BMP 02/26/19 06:27 02/26/19 06:27 INR, PTT INR 1.04 (0.83-1.09) 02/25/19 00:52 Problem List - Problems (1) Symptomatic anemia Assessment/Plan: Transfused prbc's However H/H decreased Monitor H/H Code(s): D64.9 - ANEMIA, UNSPECIFIED (2) Vaginal bleeding Assessment/Plan: JANITORIAL ACCOUNT MANAGER consult noted Bladder US showed endometrial thickening/uterine fibroid Code(s): N93.9 - ABNORMAL UTERINE AND VAGINAL BLEEDING, UNSPECIFIED
[2019-02-27 07:10] LABS: BASO % 0.6 % (0-2.0); EOS % 2.5 % (0-4.5); HEMATOCRIT 23.6 % (32.4-45.2); HEMOGLOBIN 7.8 GM/dL (10.7-15.3); LYMPH % 16.3 % (8-40); MCH 25.1 pg (25.7-33.7); MCHC 33.1 g/dl (32.0-36.0); MEAN CELL VOLUME 75.9 fl (80-96); MEAN PLT VOLUME 8.1 fl (7.5-11.1); MONO % 7.6 % (3.8-10.2); PLATELET COUNT 224 K/MM3 (134-434); RBC 3.11 M/mm3 (3.60-5.2); RDW 20.9 % (11.6-15.6); WHITE BLOOD COUNT 9.4 K/mm3 (4.0-10.0)
[2019-02-27 07:37] LABS: ALBUMIN 2.6 g/dl (3.4-5.0); BILIRUBIN,TOTAL 0.6 mg/dL (0.2-1); BLOOD UREA NITROGEN 16.4 mg/dL (7-18); CALCIUM 7.5 mg/dL (8.5-10.1); CREATININE 0.9 mg/dL (0.55-1.3); POTASSIUM 4.2 mmol/L (3.5-5.1)
[2019-02-27] MEDS: ACETAMINOPHEN 325 MG TABLET (FP) PO PRN (07:38)
[2019-02-27] MEDS ORDERED: PT OWN MED DRAWER 7, Y5N ONE (09:20)
--- NOTE | 2019-02-27 13:31 | PN ---
Progress Note, Physician Chief Complaint: No events overnight. Still bleeding, reports using 4 pads over last 24 hours. Small clots. Has not changed pad yet today. History of Present Illness: 63yo with longstanding history of vaginal bleeding going back x 3 years. Reports history of fibroids since her 20's but "very small" then, last sono in system here in 2018 showed small fibroid uterus. Reports over last 3 months increased bleeding but not daily. Saw PCP Dr. Joselito Long last week when she was having spotting, given Provera 5 or 10mg and told to take it for only 5 days, which she did. 2 days after stopping, she reports heavy bleeding started- which was yesterday around 1PM. She presented to the ER last night as it persisted in heaviness. Unable to quantify how many pads she has changed. Passing small clots. Some cramping. Primary PROFESSIONAL ARCHITECT: Renee Delacruz (PROFESSIONAL ARCHITECT at [employer] [facility] [employer]), was supposed to have a D&C in early January, but cancelled 2/2 anemia preoperatively... Was scheduled to go today for her preop evaluation prior to another scheduled D&C and possible Mirena placement. States her last sono was one year ago and she believes she has had an office biopsy, but unsure when and what the results showed. Again, unclear given 3 year history of this bleeding what entirely has been done and the overall plan with her Primary PROFESSIONAL ARCHITECT. - Current Medication List Current Medications: Active Medications Acetaminophen (Tylenol -) 650 mg PO Q6H PRN PRN Reason: pain 4-10 Last Admin: 02/27/19 07:38 Dose: 650 mg Medroxyprogesterone Acetate (Provera -) 10 mg PO DAILY [facility] Last Admin: 02/27/19 10:35 Dose: 10 mg - Objective Vital Signs: Vital Signs Temperature 98.2 F 02/27/19 06:25 Pulse Rate 113 H 02/27/19 06:25 Respiratory Rate 18 02/27/19 09:00 Blood Pressure 138/82 02/27/19 06:25 O2 Sat by Pulse Oximetry (%) 95 02/27/19 09:00 Genitourinary: Yes: Vaginal Bleeding Labs: CBC, BMP 02/27/19 06:35 02/27/19 06:35 INR, PTT INR 1.04 (0.83-1.09) 02/25/19 00:52 Problem List - Problems (1) Anemia Code(s): D64.9 - ANEMIA, UNSPECIFIED Qualifiers: Anemia type: iron deficiency Iron deficiency anemia type: chronic blood loss Qualified Code(s): D50.0 - Iron deficiency anemia secondary to blood loss (chronic) (2) Vaginal bleeding Code(s): N93.9 - ABNORMAL UTERINE AND VAGINAL BLEEDING, UNSPECIFIED Assessment/Plan 63yo with vaginal bleeding, provoked by progesterone withdrawal. Pt received 1UPRBC on HD#1 and additional 1 unit last night. H/H 7.8/23.6 this AM. Pt presented a report showing negative EMB biopsy done February 2018 by primary PROFESSIONAL ARCHITECT. Dr. Delacruz Received Provera 10mg yesterday afternoon and second dose this morning. Unable to assess bleeding improvement as patient has been in the same pad/diaper since 8PM. TVUS imagines reviewed, ES 1.7cm which is thickened but improved from her 2018 sono where the lining was 2.7cm. Will await final report. Should receive another 2U PRBC toda, consider making NPO at midnight in the event she needs to go for D&C tomorrow if bleeding is still heavy. Patient will ultimately need definitive therapy with hysterectomy given age and persistence of bleeding, which will need to be discussed on an outpatient basis. Krish Boyd MD
--- NOTE | 2019-02-27 23:56 | PN ---
Progress Note, Physician History of Present Illness: No new complaints - Current Medication List Current Medications: Active Medications Acetaminophen (Tylenol -) 650 mg PO Q6H PRN PRN Reason: pain 4-10 Last Admin: 02/27/19 07:38 Dose: 650 mg Medroxyprogesterone Acetate (Provera -) 10 mg PO DAILY SERGEI Last Admin: 02/27/19 10:35 Dose: 10 mg - Objective Vital Signs: Vital Signs Temperature 98.3 F 02/27/19 15:15 Pulse Rate 117 H 02/27/19 15:15 Respiratory Rate 18 02/27/19 15:15 Blood Pressure 125/70 02/27/19 15:15 O2 Sat by Pulse Oximetry (%) 95 02/27/19 09:00 Neck: Yes: WNL, Supple Cardiovascular: Yes: WNL, Regular Rate and Rhythm Respiratory: Yes: WNL, Regular, CTA Bilaterally Gastrointestinal: Yes: WNL, Normal Bowel Sounds, Soft Labs: CBC, BMP 02/27/19 06:35 02/27/19 06:35 INR, PTT INR 1.04 (0.83-1.09) 02/25/19 00:52 Problem List - Problems (1) Symptomatic anemia Assessment/Plan: Transfuse 2 units prbc's today Monitor H/H Code(s): D64.9 - ANEMIA, UNSPECIFIED (2) Vaginal bleeding Assessment/Plan: MUSHROOM GROWER consult noted Possible D&C in am Bladder US showed endometrial thickening/uterine fibroid Code(s): N93.9 - ABNORMAL UTERINE AND VAGINAL BLEEDING, UNSPECIFIED
[2019-02-28] MEDS: ACETAMINOPHEN 325 MG TABLET (FP) PO PRN (01:37)
[2019-02-28 06:21] LABS: BASO % 0.4 % (0-2.0); EOS % 3.7 % (0-4.5); HEMATOCRIT 22.7 % (32.4-45.2); HEMOGLOBIN 7.6 GM/dL (10.7-15.3); MCH 26.6 pg (25.7-33.7); MCHC 33.5 g/dl (32.0-36.0); MEAN CELL VOLUME 79.2 fl (80-96); MEAN PLT VOLUME 8.3 fl (7.5-11.1); MONO % 6.8 % (3.8-10.2); NEUT % 72.1 % (42.8-82.8); PLATELET COUNT 192 K/MM3 (134-434); RBC 2.87 M/mm3 (3.60-5.2); RDW 19.8 % (11.6-15.6); WHITE BLOOD COUNT 9.5 K/mm3 (4.0-10.0)
[2019-02-28 06:51] LABS: ALBUMIN 2.4 g/dl (3.4-5.0); BILIRUBIN,TOTAL 0.4 mg/dL (0.2-1); BLOOD UREA NITROGEN 16.2 mg/dL (7-18); CALCIUM 7.5 mg/dL (8.5-10.1); CREATININE 0.8 mg/dL (0.55-1.3); POTASSIUM 3.8 mmol/L (3.5-5.1); TOT PROT 4.6 g/dl (6.4-8.2)
[2019-02-28] MEDS ORDERED: PT OWN MED DRAWER 7, Y5N ONE (09:38)
--- NOTE | 2019-02-28 11:35 | PN ---
Progress Note, Physician Chief Complaint: No events overnight. Still bleeding, reports using 4 pads over last 24 hours. Small clots. Has not changed pad yet today. - Current Medication List Current Medications: Active Medications Acetaminophen (Tylenol -) 650 mg PO Q6H PRN PRN Reason: pain 4-10 Last Admin: 02/28/19 01:37 Dose: 650 mg Medroxyprogesterone Acetate (Provera -) 10 mg PO DAILY SERGEI Last Admin: 02/27/19 10:35 Dose: 10 mg - Objective Vital Signs: Vital Signs Temperature 97.8 F 02/28/19 09:00 Pulse Rate 103 H 02/28/19 09:00 Respiratory Rate 22 H 02/28/19 09:00 Blood Pressure 122/72 02/28/19 09:00 O2 Sat by Pulse Oximetry (%) 97 02/28/19 09:00 Constitutional: No: Well Nourished, No Distress, Calm, Anxious, Ashen, Cachectic , Diaphoresis, Mild Distress, Moderate Distress, Severe Distress, Obese, Pallor , Poor Hygeine, Thin, Other Genitourinary: Yes: Vaginal Bleeding Edema: No Labs: CBC, BMP 02/28/19 05:35 02/28/19 05:35 INR, PTT INR 1.04 (0.83-1.09) 02/25/19 00:52 Problem List - Problems (1) Vaginal bleeding Code(s): N93.9 - ABNORMAL UTERINE AND VAGINAL BLEEDING, UNSPECIFIED (2) Anemia Code(s): D64.9 - ANEMIA, UNSPECIFIED Qualifiers: Anemia type: iron deficiency Iron deficiency anemia type: chronic blood loss Qualified Code(s): D50.0 - Iron deficiency anemia secondary to blood loss (chronic) Assessment/Plan 63yo here with vaginal bleeding, provoked by progesterone withdrawal. Longstanding history of PM. Pt received 1UPRBC on HD#1 and additional 1 unit last night. Hct down to 22. Did not receive any transfusion yesterday despite recommendation. Reports that bleeding did slow down yesterday but she thinks is starting back up today. Pt presented a report showing negative EMB biopsy done February [address]ER[address] Delacruz 2U PRBC javier given today now that H/H is 09/13 and plan for procedure NPO for D&C this afternoon. Nature and risks of procedure reviewed. If bleeding improved after procedure, will need repeat CBC this evening. If all stable later tonight, possible discharge but she should continue on Provera therapy as an outpatient. Patient will ultimately need definitive therapy with hysterectomy given age and persistence of bleeding, pending pathology. Krish Boyd MD
[2019-02-28] MEDS ORDERED: MIDAZOLAM HCL 2 MG/2 ML SINGLE DOSE VIAL ONE (12:02)
[2019-02-28] MEDS ORDERED: ROCURONIUM BROMIDE 50 MG/5 ML SYRINGE ONE (12:36)
[2019-02-28] MEDS ORDERED: LIDOCAINE HCL 2% JELLY (5 ML/TUBE) ONE (13:21)
[2019-02-28] MEDS ORDERED: DEXAMETHASONE SOD PHOSPHATE 4 MG/1 ML VIAL ONE (13:21)
[2019-02-28] MEDS ORDERED: LIDOCAINE HCL/PF 2% SDV 5ML VIAL ONE (13:21)
--- NOTE | 2019-02-28 13:22 | OP ---
Operative Note - Note: Operative Date: 02/28/19 Pre-Operative Diagnosis: Postmenopausal Bleeding, Uterine Fibroids Operation: Dilation and Curettage Findings: Normal Vagina, Normal cervix, Enlarged uterine cavity, 14cm on uterine sound. Frozen pathology- benign endometrium, leiyomyoma Post-Operative Diagnosis: Same as Pre-op Surgeon: Wen Boyd Anesthesia: MAC Specimens Removed: Endometrial Curettage Estimated Blood Loss (mls): 25 Fluid Volume Replaced (mls): 700 (2U PRBC) Operative Report Dictated: Yes
--- NOTE | 2019-02-28 14:05 | PN ---
Progress Note (short form) - Note Progress Note: Uncomplicated D&C. Procedure reviewed with patient, prelim path normal. Unable to reach her daughter via cell phone. Discussed plan with patient and nursing for repeat CBC this PM and if improved, pt would be stable for discharge home today. Plan for office follow up 03/04/2019 Krish Boyd MD Problem List - Problems (1) Vaginal bleeding Problems reviewed: Yes Code(s): N93.9 - ABNORMAL UTERINE AND VAGINAL BLEEDING, UNSPECIFIED (2) Anemia Code(s): D64.9 - ANEMIA, UNSPECIFIED Qualifiers: Anemia type: iron deficiency Iron deficiency anemia type: chronic blood loss Qualified Code(s): D50.0 - Iron deficiency anemia secondary to blood loss (chronic)
[2019-02-28] MEDS ORDERED: KETOROLAC TROMETHAMINE 30 MG/1 ML VIAL ONE (14:56)
[2019-02-28] MEDS ORDERED: KETOROLAC TROMETHAMINE 30 MG/1 ML VIAL IM ONE (14:58)
[2019-02-28] MEDS ORDERED: ONDANSETRON 4 MG/2 ML VIAL IVPUSH PRN (16:29)
[2019-02-28] MEDS ORDERED: LACTATED RINGERS SOLUTION 1,000 ML IV SCH (16:30)
[2019-02-28] MEDS ORDERED: KETOROLAC TROMETHAMINE 30 MG/1 ML VIAL IVPUSH ONE (16:30)
[2019-02-28 18:04] LABS: BASO % 0.4 % (0-2.0); EOS % 0.1 % (0-4.5); HEMATOCRIT 31.5 % (32.4-45.2); HEMOGLOBIN 10.3 GM/dL (10.7-15.3); LYMPH % 4.8 % (8-40); MCH 27.1 pg (25.7-33.7); MCHC 32.7 g/dl (32.0-36.0); MEAN PLT VOLUME 8.6 fl (7.5-11.1); MONO % 1.8 % (3.8-10.2); NEUT % 92.9 % (42.8-82.8); PLATELET COUNT 193 K/MM3 (134-434); RBC 3.79 M/mm3 (3.60-5.2); RDW 18.8 % (11.6-15.6); WHITE BLOOD COUNT 13.1 K/mm3 (4.0-10.0)
[2019-02-28 18:56] LABS: ANISOCYTOSIS 1+; PLATELET ESTIMATE ADEQUATE
--- NOTE | 2019-02-28 22:39 | PN ---
Progress Note, Physician History of Present Illness: Pt tolerated D&C - Current Medication List Current Medications: Active Medications Acetaminophen (Tylenol -) 650 mg PO Q6H PRN PRN Reason: pain 4-10 Last Admin: 02/28/19 01:37 Dose: 650 mg Fentanyl (Sublimaze Injection -) 50 mcg IVPUSH [id number] PRN PRN Reason: PAIN-PACU ORDER X 4 DOSES ONLY Lactated Ringer's (Lactated Ringers Solution) 1,000 mls @ 75 mls/hr IV ASDIR [facility] Last Admin: 02/28/19 17:00 Dose: 75 mls/hr Medroxyprogesterone Acetate (Provera -) 10 mg PO DAILY [facility] Last Admin: 02/28/19 18:34 Dose: 10 mg Ondansetron HCl (Zofran Injection) 4 mg IVPUSH Q6H PRN PRN Reason: NAUSEA AND/OR VOMITING - Objective Vital Signs: Vital Signs Temperature 97.7 F 02/28/19 15:34 Pulse Rate 106 H 02/28/19 15:34 Respiratory Rate 22 H 02/28/19 15:34 Blood Pressure 121/70 02/28/19 15:34 O2 Sat by Pulse Oximetry (%) 100 02/28/19 14:46 Neck: Yes: WNL, Supple Cardiovascular: Yes: WNL, Regular Rate and Rhythm Respiratory: Yes: WNL, Regular, CTA Bilaterally Gastrointestinal: Yes: WNL, Normal Bowel Sounds, Soft Labs: CBC, BMP 02/28/19 17:15 02/28/19 05:35 INR, PTT INR 1.04 (0.83-1.09) 02/25/19 00:52 Problem List - Problems (1) Vaginal bleeding Assessment/Plan: 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
--- NOTE | 2019-03-01 08:10 | PN ---
Progress Note (short form) - Note Progress Note: Anesthesia postop note 63 y/o F, s/p GA for D&C POD#1, vss, aaox3, no complaints. No anesthesia complications.
[2019-03-01] MEDS ORDERED: DOCUSATE SODIUM 100 MG CAPSULE (FP) PO ONE (09:30)
[2019-03-01] MEDS ORDERED: PT OWN MED DRAWER 7, Y5N ONE (09:36)
[2019-03-01 10:19] LABS: BASO % 0.6 % (0-2.0); EOS % 1.8 % (0-4.5); HEMATOCRIT 24.5 % (32.4-45.2); HEMOGLOBIN 8.1 GM/dL (10.7-15.3); LYMPH % 14.2 % (8-40); MCH 27.1 pg (25.7-33.7); MEAN PLT VOLUME 8.2 fl (7.5-11.1); NEUT % 74.4 % (42.8-82.8); PLATELET COUNT 185 K/MM3 (134-434); RBC 2.99 M/mm3 (3.60-5.2); RDW 19.4 % (11.6-15.6); WHITE BLOOD COUNT 11.1 K/mm3 (4.0-10.0)
--- NOTE | 2019-03-01 11:25 | PATH ---
Surgical Pathology Report Patient Name: ALEXANDREA WALKER Med. Rec. #: [id number] /Age/Gender: 1955 (Age: 63) / F Account: [id number] Location: 4 TELEMETRY U Taken: 02/28/2019 Received: 02/28/2019 Reported: 03/01/2019 Physicians: Wen Boyd Specimen(s) Received A: ENDOMETRIAL CURETTAGE (FS) B: ENDOMETRIAL CURETTAGE Clinical History Postmenopausal bleeding x3 years, negative endometrial biopsy February 2018 Intraoperative Consult Diagnosis A. Endometrial curettage, frozen section: Broad bundles of smooth muscle suggestive of submucosal leiomyoma, scant endometrium, blood and benign cervical tissue. No definitive malignancy identified. Chanel Rome M.D., 02/28/2019 Final Diagnosis A. ENDOMETRIAL CURETTAGE, DILATION AND CURETTAGE (FS): RARE STRIPS AND FEW INACTIVE ENDOMETRIAL GLANDS. BROAD BUNDLES OF SMOOTH MUSCLE CONSISTENT WITH SUBMUCOSAL LEIOMYOMA. BENIGN CERVICAL SQUAMOUS AND ENDOCERVICAL MUCOSA WITH PATCHY MILD ACUTE INFLAMMATION AND SQUAMOUS METAPLASIA IN A HEMORRHAGIC BACKGROUND. B. ENDOMETRIAL CURETTAGE, DILATION AND CURETTAGE: POLYPOID FRAGMENTS OF INACTIVE ENDOMETRIUM WITH CHRONIC ENDOMETRITIS, GLANDULAR AND STROMAL BREAKDOWN. BROAD BUNDLES OF SMOOTH MUSCLE CONSISTENT WITH SUBMUCOSAL LEIOMYOMA. BENIGN CERVICAL TISSUE IN A BACKGROUND OF ABUNDANT BLOOD. Electronically Signed Georgina Phillips M.D. Gross Description A. Received in formalin labeled "endometrial curettage" is a 1.8 x 1.5 x 0.3 cm aggregate jackson-red soft tissue fragments admixed with blood-tinged mucous. The specimen is entirely submitted for frozen section. The frozen section residue is entirely submitted in one cassette. B. Received in formalin labeled "endometrial curettage," is a 5.0 x 4.5 x 0.4 cm aggregate of jackson and red soft tissue fragments. The formalin is filtered and the specimen is entirely submitted in 4 cassettes. DL/02/28/2019 saudi/02/28/2019
--- NOTE | 2019-03-01 12:02 | OP ---
DATE OF OPERATION: 02/28/2019 PREOPERATIVE DIAGNOSIS: Postmenopausal bleeding, uterine fibroids. POSTOPERATIVE DIAGNOSIS: Postmenopausal bleeding, uterine fibroids. PROCEDURE: Dilation and curettage. ANESTHESIA: LMA. INTRAVENOUS FLUIDS: Per anesthesia record 2 units packed red blood cells given intraoperatively. SURGEON: Carlito Welch MD ESTIMATED BLOOD LOSS: 25. URINE OUTPUT: Not measured. FINDINGS: Normal vagina, normal cervix, enlarged uterine cavity to 14 cm. Frozen pathology showing normal endometrium, benign leiomyoma. COMPLICATIONS: None. CONDITION: Stable to recovery room. NATURE OF THE PROCEDURE: After the appropriate consents were signed, patient was taken to the operating room. Anesthesia was administered. She was placed in lithotomy position. Time-out was performed confirming correct patient and procedure. Operative field was prepped and draped in a normal sterile fashion, 2 units of blood, which had been ordered earlier in the day were hung and administered per the anesthesia provider. Sterile speculum inserted into the vagina with good visualization of the cervix. The anterior lip of the cervix was grasped with single-tooth tenaculum. The uterus was gently sounded to 14 cm. Uterus was then gently dilated up with the Wynn dilators to accommodate the curettage, which was introduced posteriorly. A gritty texture was immediately noticed. Curettage was still done gently the posterior uterus with tissue then sent for frozen pathology. Attention was then paid to the anterior fundal portion with copious tissue removed after several passes of the curettage. That tissue was then sent off for standard pathology. The anterior lip of the cervix was noted to be normal upon removal of the tenaculum. No active brisk bleeding was noted at the end of the procedure. The speculum was then removed. All sponge counts were correct x3. The patient did not receive any antibiotics during the procedure. She was taken from the operating room to the recovery area in stable condition. CARLITO WELCH MD MG/[id number]
--- NOTE | 2019-03-01 23:39 | PN ---
Progress Note, Physician History of Present Illness: Pt states that she had some heavy vaginal bleeding last night - Current Medication List Current Medications: Active Medications Acetaminophen (Tylenol -) 650 mg PO Q6H PRN PRN Reason: pain 4-10 Last Admin: 02/28/19 01:37 Dose: 650 mg Fentanyl (Sublimaze Injection -) 50 mcg IVPUSH [id number] PRN PRN Reason: PAIN-PACU ORDER X 4 DOSES ONLY Medroxyprogesterone Acetate (Provera -) 10 mg PO DAILY SERGEI Last Admin: 03/01/19 09:43 Dose: 10 mg Ondansetron HCl (Zofran Injection) 4 mg IVPUSH Q6H PRN PRN Reason: NAUSEA AND/OR VOMITING - Objective Vital Signs: Vital Signs Temperature 98.8 F 03/01/19 22:00 Pulse Rate 105 H 03/01/19 22:00 Respiratory Rate 18 03/01/19 22:00 Blood Pressure 118/73 03/01/19 22:00 O2 Sat by Pulse Oximetry (%) 100 03/01/19 20:58 Neck: Yes: WNL, Supple Cardiovascular: Yes: WNL, Regular Rate and Rhythm Respiratory: Yes: WNL, Regular, CTA Bilaterally Gastrointestinal: Yes: WNL, Normal Bowel Sounds, Soft Labs: CBC, BMP 03/01/19 09:50 02/28/19 05:35 INR, PTT INR 1.04 (0.83-1.09) 02/25/19 00:52 Problem List - Problems (1) Symptomatic anemia Assessment/Plan: Transfused 1 units prbc's today Check H/H in am Probable dc planning for am Code(s): D64.9 - ANEMIA, UNSPECIFIED (2) Vaginal bleeding Assessment/Plan: 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
[2019-03-02 07:22] LABS: BASO % 0.5 % (0-2.0); EOS % 3.8 % (0-4.5); HEMATOCRIT 25.8 % (32.4-45.2); HEMOGLOBIN 8.7 GM/dL (10.7-15.3); LYMPH % 13.9 % (8-40); MCH 27.9 pg (25.7-33.7); MCHC 33.8 g/dl (32.0-36.0); MEAN CELL VOLUME 82.6 fl (80-96); MEAN PLT VOLUME 8.2 fl (7.5-11.1); MONO % 7.5 % (3.8-10.2); NEUT % 74.3 % (42.8-82.8); PLATELET COUNT 184 K/MM3 (134-434); RBC 3.13 M/mm3 (3.60-5.2); RDW 18.1 % (11.6-15.6); WHITE BLOOD COUNT 9.5 K/mm3 (4.0-10.0)
[2019-03-02] MEDS: ACETAMINOPHEN 325 MG TABLET (FP) PO PRN (13:51)
[2019-03-02 14:31] VITALS: BP 131/79; PULSE 102; TEMP 98.3
--- NOTE | 2019-03-02 14:38 | PN ---
Progress Note, Physician Chief Complaint: No events overnight. Still bleeding, reports using 4 pads over last 24 hours. Small clots. Has not changed pad yet today. History of Present Illness: 63yo with longstanding history of vaginal bleeding going back x 3 years. Reports history of fibroids since her 20's but "very small" then, last sono in system here in 2018 showed small fibroid uterus. Reports over last 3 months increased bleeding but not daily. Saw PCP Dr. Joselito Long last week when she was having spotting, given Provera 5 or 10mg and told to take it for only 5 days, which she did. 2 days after stopping, she reports heavy bleeding started- which was yesterday around 1PM. She presented to the ER last night as it persisted in heaviness. Unable to quantify how many pads she has changed. Passing small clots. Some cramping. Primary VIDEO PRESENTATION OPERATOR: Renee Delacruz (VIDEO PRESENTATION OPERATOR at [facility]), was supposed to have a D&C in early January, but cancelled 2/2 anemia preoperatively... Was scheduled to go today for her preop evaluation prior to another scheduled D&C and possible Mirena placement. States her last sono was one year ago and she believes she has had an office biopsy, but unsure when and what the results showed. Again, unclear given 3 year history of this bleeding what entirely has been done and the overall plan with her Primary VIDEO PRESENTATION OPERATOR. - Current Medication List Current Medications: Active Medications Acetaminophen (Tylenol -) 650 mg PO Q6H PRN PRN Reason: pain 4-10 Last Admin: 03/02/19 13:51 Dose: 650 mg Fentanyl (Sublimaze Injection -) 50 mcg IVPUSH [id number] PRN PRN Reason: PAIN-PACU ORDER X 4 DOSES ONLY Medroxyprogesterone Acetate (Provera -) 10 mg PO DAILY SERGEI Last Admin: 03/02/19 09:30 Dose: 10 mg Ondansetron HCl (Zofran Injection) 4 mg IVPUSH Q6H PRN PRN Reason: NAUSEA AND/OR VOMITING - Objective Vital Signs: Vital Signs Temperature 98.3 F 03/02/19 14:00 Pulse Rate 102 H 03/02/19 14:00 Respiratory Rate 20 03/02/19 14:00 Blood Pressure 131/79 03/02/19 14:00 O2 Sat by Pulse Oximetry (%) 97 03/02/19 07:58 Edema: No Labs: CBC, BMP 03/02/19 06:18 02/28/19 05:35 INR, PTT INR 1.04 (0.83-1.09) 02/25/19 00:52 - ....Imaging Ultrasound: Report Reviewed, Image Reviewed Problem List - Problems (1) Vaginal bleeding Code(s): N93.9 - ABNORMAL UTERINE AND VAGINAL BLEEDING, UNSPECIFIED (2) Anemia Code(s): D64.9 - ANEMIA, UNSPECIFIED Qualifiers: Anemia type: iron deficiency Iron deficiency anemia type: chronic blood loss Qualified Code(s): D50.0 - Iron deficiency anemia secondary to blood loss (chronic) Assessment/Plan 63yo here with vaginal bleeding, provoked by progesterone withdrawal. Longstanding history of PMB. Now s/p 5U PRBC, Hct stable at 25 S/P D&C, POD#2; Pathology pending from D&C Bleeding slowing down, now just like a period per pt report, will cont Provera while at home. Plan for short office follow up on 03/04/2019 with this MD. Case discussed with [facility], whom agree that hysterectomy is needed and will see her in their office as well once she is discharged. Patient will ultimately need definitive therapy with hysterectomy given age and persistence of bleeding, pending pathology. Pt did speak to her primary VIDEO PRESENTATION OPERATOR Dr. Delacruz recently, whom set her up for an appointment on 03/08/2019, but uncertain if patient wishes to continue care at [facility] going forward. Nonetheless, she has close follow up with VIDEO PRESENTATION OPERATOR providers. Plan for discharge home today; plan of care discussed with the patient, nursing and her provider. Krish Boyd MD
--- NOTE | 2019-03-07 00:01 | DS ---
Physical Examination Vital Signs: Vital Signs Temperature 98.3 F 03/02/19 14:00 Pulse Rate 102 H 03/02/19 14:00 Respiratory Rate 20 03/02/19 14:00 Blood Pressure 131/79 03/02/19 14:00 O2 Sat by Pulse Oximetry (%) 97 03/02/19 07:58 Cardiovascular: Yes: WNL, Regular Rate and Rhythm Respiratory: Yes: WNL, Regular, CTA Bilaterally Gastrointestinal: Yes: WNL, Normal Bowel Sounds, Soft Labs: CBC, BMP 03/02/19 06:18 02/28/19 05:35 Discharge Summary Problems reviewed: Yes Reason For Visit: VAGINAL BLEEDING,SECONDARY ANEMIA Vaginal Bleed Acute blood loss anemia Symptomatic anemia Hospital Course: Pt is a 63 y/o female w/ PMH significant for uterine fibroids and vaginal blleeding. Pt presented to ER w/ palpitations, weakness and sizzyness. Pt found to be anemic and was transfused PRBC's. Pt was followed by BILLING CONTROL CLERK and underwent a D&C. Pt's H/H remained stable and pt was discharged. Pt is to follow up w/ BILLING CONTROL CLERK for outpt hysterectomy Condition: Good - Instructions Diet, Activity, Other Instructions: Please take the provera tablet as directed Call [facility] Care on Thursday to schedule an appointment with Dr. Boyd for 2019 at 10AM for your follow up appointment Regular diet See Dr joselito Long on 03/03/19 Referrals: Wen Boyd MD [Staff Physician] - Joselito Long MD [Primary Care Provider] - Disposition: HOME - Home Medications Comprehensive Discharge Medication List: Ambulatory Orders Ferrous Sulfate [Feosol] 325 mg PO DAILY #30 tablet 02/26/19 Medroxyprogesterone Acetate [Provera] 10 mg PO BID #20 tablet 03/02/19
== END 2019-03-02 17:08 | disposition home or self-care (01) | DRG 744 ==
LOC: JER 23:05 → JERBED 02-25 06:55 → MERGE 02-25 06:55 → J4W 02-25 17:20
PROVIDERS: ADMIT Internal Medicine; ATTEND Internal Medicine
PROC: 30233N1 Transfusion of Nonautologous Red Blood Cells into Peripheral Vein, Percutaneous Approach (ICD-10-PCS; 2019-02-25)
PROC: 0UDB7ZX Extraction of Endometrium, Via Natural or Artificial Opening, Diagnostic (ICD-10-PCS; principal; 2019-02-28 15:00)
DX: N95.0 Postmenopausal bleeding (principal); D62 Acute posthemorrhagic anemia; D25.9 Leiomyoma of uterus, unspecified
CPT/HCPCS: 36415; 36430; 36511; 71045-TC-FY; 76856-TC; 80053; 82550; 84484; 85025; 85610; 85730; 86850; 86900; 86901; 86922; 88305-TC; 88331-TC; 93005; 93010; 94760; 99285-25; J1756; P9038; P9058